=== PATIENT | male | born 1985 | race Two or more races ===

== ENCOUNTER 2018-08-20 13:27 | Emergency (ER) | payer SELFPAY ==
[~2018-08-20] VITALS: Ht 170.2 cm; Wt 77.1 kg
[2018-08-20] MEDS ORDERED: SODIUM CHLORIDE 0.9% 1,000 ML IV ONE (14:17)
[2018-08-20 14:57] LABS: Eosinophils # (auto) 0.1 uL; Lymphocytes # (auto) 1.4 uL; Monocytes # (auto) 0.6 uL; Neutrophils # (auto) 2.8 uL; White Blood Cell 4.9 10^3/uL (4.4-10.8)
[2018-08-20 14:59] LABS: Basophils # (auto) 0.1 uL; Basophils % (auto) 1.2 % (0.0-2.0); Eosinophils % (auto) 1.6 % (0.0-7.0); Hematocrit 45.9 % (41.0-53.0); Lymphocytes % (auto) 27.7 % (10.0-50.0); Mean Corpuscular Hemoglobin 34.6 pg (28.0-32.0); Mean Corpuscular Hgb Conc. 34.9 g/dL (32.0-36.0); Monocytes % (auto) 11.8 % (0.0-12.0); Neutrophils % (auto) 57.7 % (37.0-80.0); Platelet Count (auto) 238 10^3/uL (140-450); Red Blood Cells 4.64 10^6/uL (4.5-5.90); Red Cell Distribution Width 12.1 % (11.8-14.3)
[2018-08-20 15:27] LABS: Alanine Aminotransferase 35 U/L (16-61); Albumin 4.1 g/dL (3.4-5.0); Anion Gap 5 (5-15); Aspartate Aminotransferase 27 U/L (15-37); BUN/Creatinine Ratio 7.2; Blood Urea Nitrogen 5 mg/dL (7-18); Calcium 8.6 mg/dL (8.5-10.1); Carbon Dioxide 29 mmol/L (21-32); Chloride 104 mmol/L (98-107); GFR African American 169 mL/min; GFR Non-African American 140 mL/min; Glucose 105 mg/dL (74-106); Potassium 3.7 mmol/L (3.5-5.1); Sodium 138 mmol/L (136-145)
[2018-08-20 15:31] LABS: Alkaline Phosphatase 59 U/L (45-117); Bilirubin, Total 0.5 mg/dL (0.2-1.0); Total Protein 7.5 g/dL (6.4-8.2)
[2018-08-20 16:12] VITALS: BP 104/68
[2018-08-20 16:24] LABS: Urine Bacteria NONE SEEN /hpf (None Seen); Urine Blood Negative /uL (Negative); Urine Specific Gravity 1.007 (1.001-1.035); Urine WBC 1 /hpf (0 - 3)
== END 2018-08-20 16:23 | disposition home or self-care (01) ==
LOC: ER 13:30 → EDBD 13:30 → ER 16:23
DX: R55 Syncope and collapse (principal)
CPT/HCPCS: 36415; 80053; 81001; 84484; 85025; 93005; 96360

== ENCOUNTER 2020-04-27 16:41 | Inpatient (IN) | payer SELFPAY ==
[~2020-04-27] VITALS: Ht 170.2 cm; Wt 74.5 kg
[2020-04-27 17:21] LABS: Urine Bacteria NONE SEEN /hpf (None Seen); Urine Blood Negative /uL (Negative); Urine Hyaline Cast FEW /lpf (0 - 2); Urine Mucus FEW (None Seen); Urine Specific Gravity 1.034 (1.001-1.035); Urine WBC 2 /hpf (0 - 3)
[2020-04-27] MEDS ORDERED: MORPHINE SULF INJ 2 MG/ML SYRINGE 1ML IV ONE ×2 (17:30→20:00)
[2020-04-27] MEDS ORDERED: SODIUM CHLORIDE 0.9% 1,000 ML IV ONE (17:30)
[2020-04-27] MEDS ORDERED: ONDANSETRON HCL 4 MG/2 ML VIAL IV ONE ×2 (17:30→20:00)
[2020-04-27] MEDS ORDERED: PANTOPRAZOLE 40 MG/10 ML VIAL INJ IV ONE (17:30)
[2020-04-27 17:32] LABS: Amphetamine Screen, Urine NEGATIVE (NEGATIVE); Barbiturate Scree,Urine NEGATIVE (NEGATIVE); Benzodiazephine Screen, Urine NEGATIVE (NEGATIVE); Cannabinoid Screen, Urine NEGATIVE (NEGATIVE); Cocaine Screen, Urine NEGATIVE (NEGATIVE); Opiate Scree,Urine NEGATIVE (NEGATIVE); Phencyclidine Screen, Urine NEGATIVE (NEGATIVE)
[2020-04-27 17:49] LABS: Basophils # (auto) 0.1 10 ^3/uL (0-0.2); Eosinophils # (auto) 0 10 ^3/uL (0-0.8); Hematocrit 44.2 % (41.0-53.0); Hemoglobin 15.6 g/dL (13.5-17.5); Lymphocytes # (auto) 0.3 10 ^3/uL (0.4-5.4); Lymphocytes % (auto) 2.2 % (10.0-50.0); Mean Corpuscular Hemoglobin 34.8 pg (28.0-32.0); Mean Corpuscular Hgb Conc. 35.2 g/dL (32.0-36.0); Mean Corpuscular Volume 98.8 fL (80.0-100.0); Monocytes % (auto) 7.3 % (0.0-12.0); Neutrophils # (auto) 12.3 10 ^3/uL (1.6-8.6); Neutrophils % (auto) 89.5 % (37.0-80.0); Platelet Count (auto) 216 10^3/uL (140-450); Red Blood Cells 4.48 10^6/uL (4.5-5.90); Red Cell Distribution Width 11.9 % (11.8-14.3); White Blood Cell 13.7 10^3/uL (4.4-10.8)
[2020-04-27 18:16] LABS: Albumin 4.3 g/dL (3.4-5.0); Amylase 174 U/L (25-115); Calcium 9.4 mg/dL (8.5-10.1); Lipase 234 U/L (73-393)
[2020-04-27 18:20] LABS: BUN/Creatinine Ratio 12.9; Bilirubin, Total 1.6 mg/dL (0.2-1.0); Total Protein 8.1 g/dL (6.4-8.2)
[2020-04-27 18:34] LABS: Potassium 2.9 mmol/L (3.5-5.1)
[2020-04-27] MEDS ORDERED: POTASSIUM EFFERVESENT TAB 25 MEQ PO ONE ×2 (18:45)
[2020-04-27] MEDS ORDERED: cefTRIAXone 1GM/50ML D5W 50 ML IV ONE (20:00)
[2020-04-27] MEDS ORDERED: metroNIDAZOLE 500MG/100ML 100 ML IV ONE (20:00)
[2020-04-27 21:10] LABS: INR 1.04 (0.9-1.15); Partial Thromboplastin Time 25.9 sec (23.0-31.2)
[2020-04-27] MEDS ORDERED: MORPHINE SULF INJ 2 MG/ML SYRINGE 1ML IV PRN (23:00)
[2020-04-27] MEDS ORDERED: HYDROcodone-ACET 5/325MG TAB PO PRN (23:00)
[2020-04-27] MEDS ORDERED: DOCUSATE SOD 100 MG CAP PO PRN (23:00)
[2020-04-27] MEDS ORDERED: ONDANSETRON HCL 4 MG/2 ML VIAL IV PRN (23:00)
[2020-04-27] MEDS ORDERED: NITROGLYCERIN 0.4 MG SL TAB SL PRN (23:00)
[2020-04-27] MEDS: SODIUM CHLORIDE 0.9% 1,000 ML IV SCH (23:10)
[2020-04-27 23:33] LABS: Chloride 99 mmol/L (98-107); Potassium 3.2 mmol/L (3.5-5.1); Sodium 133 mmol/L (136-145)
[2020-04-27 23:37] LABS: Alanine Aminotransferase 58 U/L (16-61); Albumin 3.3 g/dL (3.4-5.0); Anion Gap 8 (5-15); Aspartate Aminotransferase 57 U/L (15-37); BUN/Creatinine Ratio 12.7; Blood Urea Nitrogen 7 mg/dL (7-18); Calcium 8.5 mg/dL (8.5-10.1); Carbon Dioxide 26 mmol/L (21-32); GFR African American 217 mL/min; GFR Non-African American 179 mL/min; Glucose 119 mg/dL (74-106)
[2020-04-27 23:40] LABS: Alkaline Phosphatase 72 U/L (45-117); Bilirubin, Total 1.1 mg/dL (0.2-1.0); Total Protein 7.1 g/dL (6.4-8.2)
[2020-04-28] VITALS (8 sets, daily range): BP systolic 106–136; BP diastolic 61–79
[2020-04-28] MEDS: MORPHINE SULFATE 4 MG/ML SYR/VIAL IV PRN ×3 (00:08→22:20)
--- NOTE | 2020-04-28 00:18 | NUR ---
MS admit from [facility] admitted to tele/MS. Patient oriented to ITZEL RM RN primary RN, unit, room, bed, and unit policies regarding patient care and visiting hours. Patient weighed by bedscale and encouraged to call if they need something. All questions and concerns addressed, patient verbalized understanding. Bed in lowest locked position, side rails up x2, call light within reach. Will round every hour and as needed and continue to monitor.
--- NOTE | 2020-04-28 00:20 | NUR ---
Patient's temperature 100.1 degrees Fahrenheit orally. Ice packs applied to under patient's armpits and blankets removed. Will reassess and continue to monitor.
--- NOTE | 2020-04-28 00:50 | NUR ---
Temperature reassessed, now 102.3 degrees Fahrenheit orally. Cooling measures remain in place. Will administer Tylenol as ordered and reassess.
[2020-04-28] MEDS: ACETAMINOPHEN 325 MG TAB PO PRN ×2 (01:31→09:20)
--- NOTE | 2020-04-28 02:30 | NUR ---
Temperature 100.6 degrees Fahrenheit, cooling measures remain in place. Patient denies chills, diaphoresis. Will continue to monitor.
[2020-04-28] MEDS: metroNIDAZOLE 500MG/100ML 100 ML IV SCH ×3 (05:11→22:20)
[2020-04-28] MEDS ORDERED: PNEUMOCOCCAL VACC POLYS 25 MCG/0.5 ML VIAL IM ONE (06:30)
--- NOTE | 2020-04-28 06:39 | NUR ---
Closing Note Patient lying in bed, awake and alert. No s/s of distress. Call light within reach. Last temperature was 99.8 degrees Fahrenheit orally. Cooling measures remain in place. Will endorse care to daysrosemarie RIVERS. Addendum: 04/28/20 at 0748 by ITZEL RM RN RN ADDITION: 75 mL of serosanguineous drainage out from DIAMANTE drain. Addendum: 04/28/20 at 0750 by ITZEL RM RN RN CORRECTION: Please disregard addition to note, wrong patient.
[2020-04-28 07:50] LABS: Eosinophils # (auto) 0 10 ^3/uL (0-0.8); Hemoglobin 14.6 g/dL (13.5-17.5); Neutrophils # (auto) 11.6 10 ^3/uL (1.6-8.6)
[2020-04-28 07:52] LABS: Basophils # (auto) 0 10 ^3/uL (0-0.2); Basophils % (auto) 0.1 % (0.0-2.0); Hematocrit 41.4 % (41.0-53.0); Lymphocytes # (auto) 0.5 10 ^3/uL (0.4-5.4); Lymphocytes % (auto) 3.6 % (10.0-50.0); Mean Corpuscular Hgb Conc. 35.3 g/dL (32.0-36.0); Mean Corpuscular Volume 99.1 fL (80.0-100.0); Monocytes # (auto) 0.5 10 ^3/uL (0-1.3); Monocytes % (auto) 3.6 % (0.0-12.0); Neutrophils % (auto) 92.7 % (37.0-80.0); Platelet Count (auto) 165 10^3/uL (140-450); Red Blood Cells 4.18 10^6/uL (4.5-5.90); Red Cell Distribution Width 11.9 % (11.8-14.3); White Blood Cell 12.5 10^3/uL (4.4-10.8)
--- NOTE | 2020-04-28 08:10 | NUR ---
Opening Shift Note Assumed care of patient, awake and alert. No S/S of distress/SOB or pain. Instructed on POC and to call for assist PRN, will continue to monitor for changes Q1hr and PRN.
[2020-04-28 08:15] LABS: Albumin 3.3 g/dL (3.4-5.0); BUN/Creatinine Ratio 11.3; Calcium 8.3 mg/dL (8.5-10.1); Total Protein 6.9 g/dL (6.4-8.2)
[2020-04-28 08:20] LABS: INR 1.15 (0.9-1.15); Partial Thromboplastin Time 30.2 sec (23.0-31.2)
[2020-04-28] MEDS: cefTRIAXone 1GM/50ML D5W 50 ML IV SCH (09:19)
[2020-04-28] MEDS: ENOXAPARIN SOD 30 MG/0.3 ML SYRINGE SC SCH (09:20)
--- NOTE | 2020-04-28 11:36 | NUR ---
Dr.R. Chan at bedside, updating patient on POC.
--- NOTE | 2020-04-28 15:07 | NUR ---
WALKED IN THE ROOM AND PATIENT DISCONNECTED OWN IV, NORMAL SALINE WAS RUNNING ON THE FLOOR. EDUCATED PATIENT ON IMPORTANCE OF IV. ASKED PATIENT NOT TO TOUCH.
--- NOTE | 2020-04-28 15:15 | NUR ---
Dr. Degroot at bedside.
[2020-04-28] MEDS ORDERED: POTASSIUM CHLORIDE 40 MEQ, LIDOCAINE 1% (LOCAL ANESTH.) 4 ML in SODIUM CHL 0.9% 100 ML IV ONE (15:30)
[2020-04-28] MEDS: SODIUM CHLORIDE 0.9% 1,000 ML IV SCH (15:40)
--- NOTE | 2020-04-28 19:00 | NUR ---
IV removal Patient's IV on right FA infiltrated while running a K-rider. IV DC'd with clean sterile technique, catheter fully intact. Cold pack and pressure dressing applied to site. Patient tolerated well.Rae JOSEPH and notified engineering technology instructor. Will continue to monitor. Addendum: 04/28/20 at 1910 by Daisy Rodriguez RN Dr. Mendoza, continue cold pack on FA, call pahrmacy and ask for an antidote. Pharmacy has been called/notified. Call back number provided.Awaiting for information.
[2020-04-28] MEDS ORDERED: HYALURONIDASE 150 UNIT/1 ML SUBCUT ONE ×2 (19:30→19:45)
--- NOTE | 2020-04-28 19:30 | NUR ---
Received ordered Hylenex from pharmacy, will administer as ordered (see emar) and continue to monitor.
--- NOTE | 2020-04-28 20:30 | NUR ---
IV insertion IV access obtained by Krysta RIVERS, via clean sterile technique by inserting 20 gauge catheter to patient's left wrist after one attempt. IV secured properly. No trauma to site. Patient tolerated well. Will continue care.
[2020-04-29 04:36] VITALS: BP 100/53
[2020-04-29] MEDS: MORPHINE SULFATE 4 MG/ML SYR/VIAL IV PRN ×2 (04:55→21:52)
[2020-04-29] MEDS: metroNIDAZOLE 500MG/100ML 100 ML IV SCH ×3 (04:58→21:13)
[2020-04-29 06:48] LABS: Eosinophils # (auto) 0 10 ^3/uL (0-0.8); Lymphocytes # (auto) 0.5 10 ^3/uL (0.4-5.4); Lymphocytes % (auto) 3.9 % (10.0-50.0); Monocytes # (auto) 0.9 10 ^3/uL (0-1.3); Red Cell Distribution Width 12.1 % (11.8-14.3)
[2020-04-29 06:52] LABS: Basophils # (auto) 0.1 10 ^3/uL (0-0.2); Basophils % (auto) 0.8 % (0.0-2.0); Hemoglobin 13.8 g/dL (13.5-17.5); Mean Corpuscular Hemoglobin 35.1 pg (28.0-32.0); Mean Corpuscular Hgb Conc. 35.3 g/dL (32.0-36.0); Mean Corpuscular Volume 99.3 fL (80.0-100.0); Monocytes % (auto) 7.7 % (0.0-12.0); Neutrophils # (auto) 10.3 10 ^3/uL (1.6-8.6); Neutrophils % (auto) 87.6 % (37.0-80.0); Nucleated Red Blood Cells % 0.1 %; Platelet Count (auto) 125 10^3/uL (140-450); Red Blood Cells 3.92 10^6/uL (4.5-5.90); White Blood Cell 11.7 10^3/uL (4.4-10.8)
--- NOTE | 2020-04-29 06:52 | NUR ---
Closing Note Patient lying in bed, awake and alert. No s/s of distress. Call light within reach. Will endorse care to dayshift RN.
--- NOTE | 2020-04-29 06:52 | NUR ---
Site of extravasation on right forearm reassessed after order Hylenex administration during shift, ecchymosis noted but redness and swelling decreased. Patient reports no pain to site at this time.
[2020-04-29 07:08] LABS: Albumin 2.8 g/dL (3.4-5.0); Calcium 8.4 mg/dL (8.5-10.1); Potassium 3.1 mmol/L (3.5-5.1)
[2020-04-29 07:12] LABS: BUN/Creatinine Ratio 16.7; Bilirubin, Total 0.7 mg/dL (0.2-1.0); Total Protein 6.5 g/dL (6.4-8.2)
[2020-04-29 08:00] VITALS: BP 99/52
--- NOTE | 2020-04-29 08:10 | NUR ---
Patient sitting on side of bed with no distress noted. Patient stable at this time.
[2020-04-29] MEDS: SODIUM CHLORIDE 0.9% 1,000 ML IV SCH (08:11)
--- NOTE | 2020-04-29 08:15 | NUR ---
Patient taken for HIDA scan.
[2020-04-29 08:34] VITALS: BP 99/52
--- NOTE | 2020-04-29 10:10 | NUR ---
Patient returned to unit in stable condition.
[2020-04-29] MEDS: cefTRIAXone 1GM/50ML D5W 50 ML IV SCH (10:27)
[2020-04-29] MEDS: ENOXAPARIN SOD 30 MG/0.3 ML SYRINGE SC SCH (10:27)
--- NOTE | 2020-04-29 10:33 | NUR ---
Scheduled IV abx and subq medications given per order. Patient resting quietly in bed with no complaint of pain.
[2020-04-29] MEDS ORDERED: POTASSIUM CHLORIDE 40 MEQ, LIDOCAINE 1% (LOCAL ANESTH.) 4 ML in SODIUM CHL 0.9% 100 ML IV ONE (10:45)
--- NOTE | 2020-04-29 13:25 | NUR ---
Patient ambulated to bathroom and back to bed. Scheduled IV abx given per order. Patient stable.
[2020-04-29 13:27] VITALS: BP 119/65
--- NOTE | 2020-04-29 14:30 | NUR ---
Patient resting quietly in bed with eyes closed. Patient stable.
[2020-04-29 16:17] VITALS: BP 100/58
--- NOTE | 2020-04-29 16:30 | NUR ---
Patient asleep with no distress noted. Patient stable at this time.
[2020-04-29] MEDS ORDERED: POTASSIUM EFFERVESENT TAB 25 MEQ PO ONE (17:15)
--- NOTE | 2020-04-29 18:10 | NUR ---
Scheduled medication given per order. Patient stable.
[2020-04-29 21:00] VITALS: BP 120/71
[2020-04-30] MEDS: SODIUM CHLORIDE 0.9% 1,000 ML IV SCH ×2 (01:46→18:11)
--- NOTE | 2020-04-30 02:04 | NUR ---
end of shift note endorse pt care to night court magistrate Radha RIVERS pt [id number], no s/s of distress or sob
--- NOTE | 2020-04-30 02:15 | NUR ---
Assumed Patient Care Report received from Amina RIVERS. Patient is currently resting with eyes closed and laying supine w/ HOB at 30 degrees. Patient respirations 16 on room air and non labored. No s/s of distress or SOB or pain noted. Bed locked in lowest position and Call light within reach. Will continue to monitor Q1 hour PRN.
[2020-04-30 05:00] VITALS: BP 108/65
[2020-04-30] MEDS: metroNIDAZOLE 500MG/100ML 100 ML IV SCH ×3 (05:30→21:51)
[2020-04-30 07:50] LABS: Basophils # (auto) 0 10 ^3/uL (0-0.2); Eosinophils # (auto) 0 10 ^3/uL (0-0.8); Eosinophils % (auto) 0.3 % (0.0-7.0); Hemoglobin 12.7 g/dL (13.5-17.5); Lymphocytes # (auto) 0.5 10 ^3/uL (0.4-5.4)
[2020-04-30 07:53] LABS: Basophils % (auto) 0.4 % (0.0-2.0); Hematocrit 35.4 % (41.0-53.0); Lymphocytes % (auto) 6.5 % (10.0-50.0); Mean Corpuscular Hemoglobin 35.5 pg (28.0-32.0); Mean Corpuscular Hgb Conc. 35.9 g/dL (32.0-36.0); Mean Corpuscular Volume 99.1 fL (80.0-100.0); Monocytes # (auto) 0.7 10 ^3/uL (0-1.3); Monocytes % (auto) 9.7 % (0.0-12.0); Neutrophils # (auto) 6.1 10 ^3/uL (1.6-8.6); Neutrophils % (auto) 83.1 % (37.0-80.0); Platelet Count (auto) 127 10^3/uL (140-450); Red Blood Cells 3.57 10^6/uL (4.5-5.90); White Blood Cell 7.3 10^3/uL (4.4-10.8)
[2020-04-30 08:02] LABS: Potassium 3.1 mmol/L (3.5-5.1)
[2020-04-30 08:12] LABS: BUN/Creatinine Ratio 18.4; Calcium 8.2 mg/dL (8.5-10.1)
[2020-04-30 08:30] VITALS: BP 114/60
--- NOTE | 2020-04-30 08:50 | NUR ---
Scheduled IV abx given per order. Patient resting comfortably in bed with no complaint of pain. Patient stable.
[2020-04-30] MEDS: cefTRIAXone 1GM/50ML D5W 50 ML IV SCH (08:51)
[2020-04-30 09:00] VITALS: BP 114/60
--- NOTE | 2020-04-30 10:10 | NUR ---
Paged Dr. Chan to advise that HIDA scan results on file for review. Spoke to Isabella. Awaiting call back.
[2020-04-30] MEDS ORDERED: POTASSIUM EFFERVESENT TAB 25 MEQ PO ONE (10:15)
[2020-04-30] MEDS: ENOXAPARIN SOD 30 MG/0.3 ML SYRINGE SC SCH (10:33)
--- NOTE | 2020-04-30 10:35 | NUR ---
Patient resting quietly in bed with no distress noted. Ordered medication given. Patient stable at this time.
--- NOTE | 2020-04-30 11:30 | NUR ---
Patient asleep with no distress noted. Patient stable.
[2020-04-30 13:00] VITALS: BP 110/67
--- NOTE | 2020-04-30 15:36 | NUR ---
Scheduled IV abx given per order. Patient stable at this time.
[2020-04-30] MEDS: MORPHINE SULFATE 4 MG/ML SYR/VIAL IV PRN (15:48)
--- NOTE | 2020-04-30 15:48 | NUR ---
Patient medicated for 8/10 right side abdominal pain. Patient stable.
--- NOTE | 2020-04-30 16:20 | NUR ---
Patient asleep with no distress noted. Patient stable.
[2020-04-30 17:00] VITALS: BP 109/66
--- NOTE | 2020-04-30 18:10 | NUR ---
Patient resting quietly in bed with no distress noted. Started new IVF bag. Patient stable throughout shift.
--- NOTE | 2020-04-30 18:45 | NUR ---
Patient asleep; stable throughout shift.
--- NOTE | 2020-04-30 19:21 | NUR ---
RECEIVED PATIENT FROM DAY SHIFT RN. PATIENT RESTING IN BED WITH EYES CLOSED. NO S//S OF DISTRESS AND PAIN NOTED. BED IN LOWEST LOCKED POSITION WITH SIDE RAILS UP X 2. CALL HUGGINS WITHIN REACH. CONTINUE TO MONITOR FOR CHANGES Q1H AND PRN.
--- NOTE | 2020-04-30 20:50 | NUR ---
PATIENT GOT UP TO BATHROOM AND BACK TO BED WITH STEADY GAIT. NO S/S OF DISTRESS NOTED. INSTRUCTED PATIENT ON NPO AFTER MIDNIGHT FOR PROCEDURE TOMORROW. PATIENT VERBALIZED UNDERSTANDING. CONTINUE TO MONITOR.
[2020-04-30 21:00] VITALS: BP 111/62
--- NOTE | 2020-04-30 21:47 | NUR ---
PATIENT TOOK SHOWER, NO S/S OF DISTRESS NOTED. CONTINUE TO MONITOR.
[2020-05-01] MEDS: MORPHINE SULFATE 4 MG/ML SYR/VIAL IV PRN ×2 (00:08→09:48)
--- NOTE | 2020-05-01 00:08 | NUR ---
PATIENT C/O PAIN @ 03/21. MEDICATED PATIENT ORDERED. CONTINUE TO MONITOR.
--- NOTE | 2020-05-01 00:25 | NUR ---
NPO FROM NOW ON, WATER AND FOOD REMOVED FROM PATIENT'S BEDSIDE. CONTINUE TO MONITOR.
--- NOTE | 2020-05-01 04:50 | NUR ---
CHG WIPES DONE, TOTAL BED LINEN AND PATIENT'S GOWN CHANGED. PATIENT TOLERATED WELL. CONTINUE TO MONITOR.
[2020-05-01 05:00] VITALS: BP 128/68
[2020-05-01] MEDS: metroNIDAZOLE 500MG/100ML 100 ML IV SCH ×3 (06:03→23:48)
--- NOTE | 2020-05-01 06:03 | NUR ---
REINFORCED PATIENT NPO NOW. CONTINUE TO MONITOR.
--- NOTE | 2020-05-01 06:47 | NUR ---
IV insertion IV access obtained, via clean sterile technique by inserting [20] gauge catheter at [LFA] after [1] attempt(s). IV secured properly. No trauma to site. Patient tolerated well. IV SITE REDNESS, AND removal IV DC'd with clean sterile technique, catheter fully intact. Pressure dressing applied to site. Patient tolerated well. NOTE:
[2020-05-01 06:54] LABS: Mean Corpuscular Hgb Conc. 35.6 g/dL (32.0-36.0)
[2020-05-01 06:56] LABS: Hematocrit 39.4 % (41.0-53.0); Mean Corpuscular Hemoglobin 35.1 pg (28.0-32.0); Mean Corpuscular Volume 98.6 fL (80.0-100.0); Platelet Count (auto) 169 10^3/uL (140-450); Red Blood Cells 3.99 10^6/uL (4.5-5.90); Red Cell Distribution Width 12.2 % (11.8-14.3); White Blood Cell 8.2 10^3/uL (4.4-10.8)
[2020-05-01 07:01] LABS: BUN/Creatinine Ratio 10.6; Calcium 8.7 mg/dL (8.5-10.1); Potassium 3.1 mmol/L (3.5-5.1)
[2020-05-01 07:12] LABS: Band Neutrophils % (manual) 0; Basophils % (manual) 0 (0.0-2.0); Blast Cells 0; Eosinophils % (manual) 0 (0-7); Metamyelocytes % 0; Myelocytes % 0; Promyelocytes % 0; Reactive Lymphocytes 0
[2020-05-01] MEDS: cefTRIAXone 1GM/50ML D5W 50 ML IV SCH (08:25)
[2020-05-01] MEDS: SODIUM CHLORIDE 0.9% 1,000 ML IV SCH (08:26)
[2020-05-01] MEDS: ENOXAPARIN SOD 30 MG/0.3 ML SYRINGE SC SCH (08:26)
--- NOTE | 2020-05-01 08:27 | NUR ---
Scheduled IV abx given per order. Patient resting quietly in bed with no distress noted. Patient stable.
[2020-05-01 08:28] LABS: Lymphocytes % (manual) 9 (10.0-50.0); Monocytes % (manual) 19 (0-12)
[2020-05-01 08:30] VITALS: BP 95/65
[2020-05-01 08:55] VITALS: BP 95/65
--- NOTE | 2020-05-01 09:49 | NUR ---
Patient medicated for 9/10 right side abdominal pain. Patient stable.
--- NOTE | 2020-05-01 11:06 | NUR ---
Nutrition Assessment Notes Please refer to link for full assessment notes. Est Energy needs: 5008-5518 kcals (25-30 kcal/kgBW) Est Protein needs: 50-62 gms/day (0.8-1.0 gm/kgBW) Will continue to monitor and reassess prn. Addendum: 05/01/20 at [address] Amended: Links added.
[2020-05-01 13:00] VITALS: BP 114/68
--- NOTE | 2020-05-01 14:19 | NUR ---
assessment Patient is a 34 year old male who is alert and oriented. Patients cognitive abilities are intact. Prior to admission patient lived home with family and functioned independently. Patient informed me he is able to care for his own ADLs. Per patient he will return home to his prior living arrangements post discharge and family will transport him home. Patient was admitted for abdominal pain. Patient has no need for DME. Patient has no insurance. Patient has been assessed by Rafael Lamb of [facility]. Patient is over income. I have provided patient with resources for [facility], Dr. Cardona, and [facility] urgent care for follow up visits. I have provided patient with a prescription card from community assistance program. Patient has no post discharge needs identified at this time. I informed patient he has a right to speak to a social work coordinator regarding all care. I informed patient he has a right to participate in any and all discharge planning. Patient does not have a POA and advanced directive. I have offered patient information on POA and advanced directives. I informed the patient the advantages and benefits of having an Advanced Directive. Patient verbalized understanding and agreed to discharge plan. Addendum: 05/01/20 at 1422 by Sarahy NINO Amended: Links added.
--- NOTE | 2020-05-01 14:20 | NUR ---
Scheduled IV abx given per order. Patient stable.
--- NOTE | 2020-05-01 15:45 | NUR ---
Patient resting quietly in bed with no distress noted. Patient stable.
[2020-05-01 16:58] VITALS: BP 103/62
[2020-05-01] MEDS ORDERED: POVIDONE IODINE 10 % TOPICAL OINT 30GM TOP ONE (19:12)
[2020-05-01] MEDS ORDERED: BUPIVACAINE 0.25% INJ 50ML VIAL ONE (19:12)
[2020-05-01] MEDS ORDERED: ceFAZolin 1GM/50ML 50 ML IV ONE (20:00)
--- NOTE | 2020-05-01 20:00 | NUR ---
Report received from TITA Gonzalez. Patient off unit, brought to OR for surgery.
[2020-05-01] MEDS ORDERED: LIDOCAINE 1% (LOCAL ANESTH.) PF 5ml SDV ONE (20:05)
[2020-05-01] MEDS ORDERED: SUCCINYLCHOLINE CHLORIDE 20 MG/ML 10ML VIAL IV ONE (20:06)
[2020-05-01] MEDS ORDERED: MIDAZOLAM HCL 1MG/1ML-2 ML VIAL ONE (20:07)
[2020-05-01] MEDS ORDERED: PROPOFOL 10 MG/ML 20 ML IV ONE (20:07)
[2020-05-01] MEDS ORDERED: ROCURONIUM 10MG/ML 10ML VIAL IV ONE (20:10)
[2020-05-01] MEDS ORDERED: METOCLOPRAMIDE HCL 5MG/ml INJ 2ml VIAL IV ONE (20:10)
[2020-05-01] MEDS ORDERED: fentaNYL CITRATE 100 MCG/2 ML VL ONE ×2 (20:22→21:35)
[2020-05-01] MEDS ORDERED: ONDANSETRON HCL 4 MG/2 ML VIAL IV PRN (20:45)
[2020-05-01] MEDS ORDERED: HYDROmorphone HCL 2 MG/ML VL IV PRN ×2 (20:45)
[2020-05-01] MEDS ORDERED: NALOXONE HCL 0.4 MG/ML VIAL IV PRN (20:45)
[2020-05-01] MEDS ORDERED: NEOSTIGMINE 1 MG/ML INJ (10mg/10ML VIAL) ONE (21:38)
[2020-05-01] MEDS ORDERED: GLYCOPYRROLATE 0.2 MG/ML 1ML VIAL ONE (21:38)
--- NOTE | 2020-05-01 22:30 | NUR ---
Report received from TITA Alvarado from recovery room. Patient will be transported back to the unit.
[2020-05-01 22:45] VITALS: BP 95/65
--- NOTE | 2020-05-01 22:45 | NUR ---
Patient back to floor. Assumed care of patient, drowsy but easily arousable. Abdominal incisions noted, DIAMANTE X1, no drainage noted. No S/S of distress/SOB or pain. Instructed on POC and to call for assist PRN, will continue to monitor for changes Q1hr and PRN.
[2020-05-02] MEDS: MORPHINE SULFATE 4 MG/ML SYR/VIAL IV PRN ×3 (01:32→09:47)
[2020-05-02] MEDS: SODIUM CHLORIDE 0.9% 1,000 ML IV SCH (03:14)
[2020-05-02 05:17] VITALS: BP 123/72
[2020-05-02] MEDS: metroNIDAZOLE 500MG/100ML 100 ML IV SCH (05:42)
--- NOTE | 2020-05-02 07:35 | NUR ---
Opening Shift Note Assumed care of patient, awake and alert. No S/S of distress/SOB, reports severe abdominal pain. Instructed on POC and to call for assist PRN, will continue to monitor for changes Q1hr and PRN.
[2020-05-02 09:00] VITALS: BP 127/70
[2020-05-02] MEDS: cefTRIAXone 1GM/50ML D5W 50 ML IV SCH (09:47)
[2020-05-02] MEDS: ENOXAPARIN SOD 30 MG/0.3 ML SYRINGE SC SCH (09:47)
[2020-05-02] MEDS ORDERED: POTASSIUM CHL 20 Meq TABLET PO ONE (12:15)
[2020-05-02] MEDS ORDERED: traMADol HCL 50 MG TAB PO PRN ×2 (12:15→13:00)
[2020-05-02 13:00] VITALS: BP 121/87
[2020-05-02] MEDS ORDERED: HYDROcodone-ACET 5/325MG TAB PO PRN (13:00)
--- NOTE | 2020-05-02 15:30 | NUR ---
Covering for a primary nurse, Dr. Chan at bedside discussed with patient, received new orders , noted and carried it out.
[2020-05-02] MEDS: HYDROmorphone HCL 2 MG/ML VL IV PRN ×2 (16:10→23:45)
[2020-05-02 17:00] VITALS: BP 126/89
[2020-05-02] MEDS: metroNIDAZOLE 500 MG TAB PO SCH ×2 (17:43→21:28)
[2020-05-02 22:34] VITALS: BP 112/68
[2020-05-03 05:00] VITALS: BP 126/70
[2020-05-03] MEDS: metroNIDAZOLE 500 MG TAB PO SCH ×2 (05:47→18:07)
[2020-05-03] MEDS: HYDROmorphone HCL 2 MG/ML VL IV PRN ×3 (05:48→18:07)
[2020-05-03 08:00] VITALS: BP 121/85
[2020-05-03 09:15] VITALS: BP 121/85
[2020-05-03] MEDS: ENOXAPARIN SOD 30 MG/0.3 ML SYRINGE SC SCH (09:50)
[2020-05-03] MEDS ORDERED: levoFLOXacin 500 MG TAB PO SCH (10:00)
[2020-05-03] MEDS ORDERED: PANTOPRAZOLE 40 MG TAB PO SCH (10:00)
[2020-05-03] MEDS ORDERED: LEVO-28 PO (11:02)
[2020-05-03] MEDS ORDERED: PANT40T PO (11:02)
[2020-05-03] MEDS ORDERED: MET500T PO (11:02)
[2020-05-03 13:17] VITALS: BP 107/68
--- NOTE | 2020-05-03 14:17 | NUR ---
Dr. Chang came over. said patient can be discharged today if okay w/ Saad Charles.
--- NOTE | 2020-05-03 14:35 | NUR ---
Called Hilaria Charles if patient can be discharged today; Dr. Chang put a discharge order today. Dr. Chan said he will see the patient first before deciding if patient can be discharged today. Dr. Chan made aware patient complained of stomach cramps, and asking if the doctor will remove his DIAMANTE bulb drain.
[2020-05-03 17:00] VITALS: BP 120/74
--- NOTE | 2020-05-03 18:10 | NUR ---
Dr. Chan at bedside. MD removed the DIAMANTE bulb, instructed the patient he can take a shower in two days. MD ordered patient can be discharged now as ordered.
[2020-05-03 18:37] VITALS: BP 107/68
--- NOTE | 2020-05-03 19:15 | NUR ---
Endorsed patient to night shift manager RN Sierra. Patient for discharge, instructions given to patient to call [facility] tomorrow, what time he can curing pickling packer the prescription as per Dr. Chang. [facility] open donnie bet. 9:00am to 12noon on Wednesday. Patient verbalized understanding.
--- NOTE | 2020-05-03 20:00 | NUR ---
Patient's ride arrived. Discharge instructions given as ordered. Encourage to follow up with PMD as instructed. All questions and concerns addressed. Patient verbalized understanding. Medication reconciliation form completed and copy given to patient. IV removed with catheter intact, pressure dressing applied, yip catheter removed. Patient taken to vehicle via wheelchair with all personal belongings, accompanied by staff and family member. No distress noted at time of departure.
--- NOTE | 2020-05-03 20:17 | NUR ---
Opening Shift Note Assumed care of patient, awake and alert. No S/S of distress/SOB or pain. Patient safety measures in place, bed in lowest position, side rails up x2, and call light within reach. Instructed on POC and to call for assist PRN, will continue to monitor for changes Q1hr and PRN. Patient awaiting ride and will notify nurse.
== END 2020-05-03 20:08 | disposition home or self-care (01) | DRG 417 ==
LOC: ER 16:41 → OVERFLOW 16:42 → WEST WING 23:55
PROVIDERS: ADMIT Nurse Practitioner Family; ATTEND Internal Medicine
PROC: 0DNW4ZZ Release Peritoneum, Percutaneous Endoscopic Approach (ICD-10-PCS; 2020-05-01)
PROC: 0W9F4ZZ Drainage of Abdominal Wall, Percutaneous Endoscopic Approach (ICD-10-PCS; 2020-05-01)
PROC: 0FT44ZZ Resection of Gallbladder, Percutaneous Endoscopic Approach (ICD-10-PCS; principal; 2020-05-01 20:15)
DX: K81.0 Acute cholecystitis (principal); K65.1 Peritoneal abscess; D84.9 Immunodeficiency, unspecified; E44.0 Moderate protein-calorie malnutrition; E87.1 Hypo-osmolality and hyponatremia; K83.09 Other cholangitis; R65.10 Systemic inflammatory response syndrome (SIRS) of non-infectious origin without acute organ dysfunction; E86.0 Dehydration; E87.6 Hypokalemia; H11.002 Unspecified pterygium of left eye; K44.9 Diaphragmatic hernia without obstruction or gangrene; K66.0 Peritoneal adhesions (postprocedural) (postinfection); K76.0 Fatty (change of) liver, not elsewhere classified; Z20.828 Contact with and (suspected) exposure to other viral communicable diseases; Z68.25 Body mass index [BMI] 25.0-25.9, adult; Z82.49 Family history of ischemic heart disease and other diseases of the circulatory system
CPT/HCPCS: 36415; 71045; 74176; 76705; 78226; 80048; 80053; 80307; 81001; 82150; 83605; 83690; 85007; 85025; 85027; 85610; 85730; 86850; 86900; 86901; 87040; 87426; 93005; 96365; 96367; 96372; 96375; C9113; G0378; J0330; J0690; J0696; J2001; J2250; J2405; J2704; J3470; J3490